=== PATIENT | male | born 1960 | race Two or more races ===

== ENCOUNTER 2019-04-19 02:32 | Emergency (ER) | payer MEDICAID ==
[~2019-04-19] VITALS: Ht 175.3 cm; Wt 86.2 kg
[2019-04-19] VITALS (7 sets, daily range): BP systolic 135–180; BP diastolic 68–100
[2019-04-19] MEDS ORDERED: MORPHINE SULFATE 4 MG/ML SYR/VIAL ONE (02:36)
[2019-04-19] MEDS ORDERED: ONDANSETRON HCL 4 MG/2 ML VIAL ONE (02:36)
[2019-04-19] MEDS ORDERED: DILTIAZEM HCL 25 MG/5 ML VIAL IV ONE ×4 (02:38→04:00)
[2019-04-19] MEDS ORDERED: SUCCINYLCHOLINE CHLORIDE 20 MG/ML 10ML VIAL IV ONE ×2 (02:57→03:15)
[2019-04-19] MEDS ORDERED: ETOMIDATE (2MG/ML) 20ML VIAL IV ONE ×2 (02:57→03:15)
[2019-04-19] MEDS ORDERED: PROPOFOL 100 ML IV ONE (02:59)
[2019-04-19] MEDS ORDERED: MIDAZOLAM DRIP 50 mg/50mL 50 ML IV ONE (03:06)
[2019-04-19] MEDS ORDERED: ONDANSETRON HCL 4 MG/2 ML VIAL IV ONE (03:15)
[2019-04-19] MEDS ORDERED: MORPHINE SULFATE 4 MG/ML SYR/VIAL IV ONE (03:15)
[2019-04-19] MEDS: MIDAZOLAM DRIP 50 mg/50mL 50 ML IV SCH ×3 (03:15→10:39)
[2019-04-19] MEDS ORDERED: PROPOFOL 100 ML IV SCH (03:23)
[2019-04-19] MEDS: PROPOFOL 100 ML IV SCH ×2 (03:30→04:06)
[2019-04-19] MEDS ORDERED: DILTIAZEM 125mg/125ml BAG KIT 125 ML IV ONE (04:15)
[2019-04-19 05:27] LABS: Basophils # (auto) 0.1 uL; Basophils % (auto) 0.6 % (0.0-2.0); Eosinophils # (auto) 0.2 uL; Eosinophils % (auto) 1.6 % (0.0-7.0); Hematocrit 51.7 % (41.0-53.0); Hemoglobin 17.5 g/dL (13.5-17.5); Lymphocytes # (auto) 3.2 uL; Mean Corpuscular Hemoglobin 35.6 pg (28.0-32.0); Mean Corpuscular Hgb Conc. 33.7 g/dL (32.0-36.0); Mean Corpuscular Volume 105.5 fL (80.0-100.0); Monocytes % (auto) 8.3 % (0.0-12.0); Neutrophils # (auto) 7.1 uL; Neutrophils % (auto) 61.5 % (37.0-80.0); Nucleated Red Blood Cells % 0.2 %; Platelet Count (auto) 154 10^3/uL (140-450); Red Cell Distribution Width 13.9 % (11.8-14.3); White Blood Cell 11.6 10^3/uL (4.4-10.8)
[2019-04-19 05:46] LABS: Albumin 3.7 g/dL (3.4-5.0); Calcium 8.8 mg/dL (8.5-10.1); Magnesium 2.2 mg/dL (1.6-2.6); Potassium 3.7 mmol/L (3.5-5.1)
[2019-04-19 05:53] LABS: BUN/Creatinine Ratio 9.7; Bilirubin, Total 0.4 mg/dL (0.2-1.0); Total Protein 8.4 g/dL (6.4-8.2)
[2019-04-19] MEDS ORDERED: DIGOXIN (250MCG/ML) 2 ML AMPULE IV ONE (06:00)
[2019-04-19] MEDS ORDERED: ENOXAPARIN SOD 100 MG/1 ML SYRINGE SC ONE (06:00)
[2019-04-19] MEDS ORDERED: IOHEXOL 350 MG/ML 100ML IJ ONE (06:10)
[2019-04-19] MEDS ORDERED: ONDANSETRON HCL 4 MG/2 ML VIAL IV PRN (07:15)
[2019-04-19] MEDS ORDERED: DEXTROSE (50%) 50ML SYRG IV PRN (07:15)
[2019-04-19] MEDS ORDERED: SODIUM CHLORIDE 0.9% 1,000 ML IV SCH (07:15)
[2019-04-19] MEDS ORDERED: ATORVASTATIN 20 MG TAB PO ONE (07:15)
[2019-04-19] MEDS ORDERED: SODIUM CHLORIDE 0.9% 500 ML IV ONE (07:15)
[2019-04-19] MEDS ORDERED: NITROGLYCERIN 0.4 MG SL TAB SL PRN (07:15)
[2019-04-19] MEDS ORDERED: ACETAMINOPHEN 325 MG TAB PO PRN (07:15)
[2019-04-19] MEDS ORDERED: MORPHINE SULF INJ 2 MG/ML SYRINGE 1ML IV PRN (07:15)
[2019-04-19 07:23] LABS: Urine WBC None Seen /hpf (0 - 3)
[2019-04-19 07:47] LABS: Urine Bacteria NONE SEEN /hpf (None Seen); Urine Blood Negative /uL (Negative); Urine Specific Gravity 1.007 (1.001-1.035)
[2019-04-19 08:10] LABS: Lactic Acid w/Reflex 3.7 mmol/L (0.4-2.0)
[2019-04-19] MEDS ORDERED: cefTRIAXone 1GM/50ML D5W 50 ML IV SCH (09:00)
[2019-04-19] MEDS ORDERED: fentaNYL Drip 2500mCg/250mlNS 250 ML IV SCH (09:00)
[2019-04-19] MEDS ORDERED: fentaNYL Drip 2500mCg/250mlNS 250 ML IV ONE (09:06)
[2019-04-19] MEDS ORDERED: ASPirin 81 mg TAB PO SCH (10:00)
[2019-04-19] MEDS ORDERED: ENOXAPARIN SOD 100 MG/1 ML SYRINGE SC SCH (10:00)
[2019-04-19] MEDS ORDERED: FAMOTIDINE (10MG/ML) 2ML VL IV SCH (10:00)
[2019-04-19] MEDS ORDERED: METOPROLOL TARTRATE 25 MG TAB NG SCH (10:00)
[2019-04-19] MEDS ORDERED: HEPARIN DRIP/D5W 100UNITS/ML 250 ML IV SCH (10:14)
[2019-04-19] MEDS ORDERED: HEPARIN SODIUM (PORCINE) 5000 UNITS/ML 1ML VIAL IV ONE (10:15)
[2019-04-19] MEDS ORDERED: HEPARIN SODIUM (PORCINE) 5000 UNITS/ML 1ML VIAL ONE (10:18)
[2019-04-19 10:27] LABS: Basophils # (auto) 0 uL; Basophils % (auto) 0.2 % (0.0-2.0); Eosinophils # (auto) 0 uL; Eosinophils % (auto) 0.1 % (0.0-7.0); Monocytes # (auto) 0.6 uL; Nucleated Red Blood Cells % 0.1 %; Platelet Count (auto) 125 10^3/uL (140-450)
[2019-04-19] MEDS ORDERED: HEPARIN DRIP/D5W 100UNITS/ML 250 ML IV ONE (10:27)
[2019-04-19 10:28] LABS: Hematocrit 45.7 % (41.0-53.0); Hemoglobin 15.4 g/dL (13.5-17.5); Lymphocytes # (auto) 1.1 uL; Lymphocytes % (auto) 11.8 % (10.0-50.0); Mean Corpuscular Hemoglobin 35.2 pg (28.0-32.0); Mean Corpuscular Hgb Conc. 33.8 g/dL (32.0-36.0); Mean Corpuscular Volume 104.1 fL (80.0-100.0); Monocytes % (auto) 5.9 % (0.0-12.0); Neutrophils # (auto) 7.7 uL; Red Blood Cells 4.39 10^6/uL (4.5-5.90); Red Cell Distribution Width 13.9 % (11.8-14.3); White Blood Cell 9.4 10^3/uL (4.4-10.8)
[2019-04-19] MEDS ORDERED: InsuLIN REG 1unit/0.01ml Soln (100units/ml) SC SCH ×2 (10:30→12:00)
[2019-04-19 10:37] LABS: INR 1.02 (0.9-1.15); Partial Thromboplastin Time 28.4 sec (23.64-32.05)
[2019-04-19 11:09] LABS: BUN/Creatinine Ratio 11.4; Calcium 8.1 mg/dL (8.5-10.1)
[2019-04-19 11:12] LABS: Potassium 6.3 mmol/L (3.5-5.1)
[2019-04-19] MEDS ORDERED: SODIUM BICARBONATE 8.4% INJ 50ML SYRINGE ONE (11:15)
[2019-04-19] MEDS ORDERED: FUROSEMIDE 40 MG/4 ML VIAL ONE (11:15)
[2019-04-19] MEDS ORDERED: CALCIUM CHLOR(10%) 100MG/ML 10ML SYRINGE IV ONE (11:15)
[2019-04-19] MEDS ORDERED: CALCIUM GLUC 4.65meq/50ml D5AE 50 ML IV ONE (11:30)
[2019-04-19] MEDS ORDERED: SODIUM BICARBONATE 8.4 % INJ 50ML VIAL IV ONE (11:30)
[2019-04-19] MEDS ORDERED: FUROSEMIDE 40 MG/4 ML VIAL IV ONE (11:30)
[2019-04-19] MEDS ORDERED: LABETALOL HCL 5 MG/ML ML 20ML VIAL IV ONE (11:38)
[2019-04-19] MEDS ORDERED: ACCU-CHEK COMFORT CURVE STRIP VI SCH (12:00)
[2019-04-19] MEDS ORDERED: metroNIDAZOLE 500MG/100ML 100 ML IV SCH (14:00)
[2019-04-19] MEDS ORDERED: ATORVASTATIN 20 MG TAB PO SCH (22:00)
--- NOTE | 2019-04-21 10:56 | NUR ---
Received no notification of Skip Miner consult order for transfer on 04/19/19.
== END 2019-04-19 14:09 | disposition home or self-care (01) ==
LOC: EDBD 02:32 → ER 02:39 → UNDOADMIN 02:40 → TELE 02:40 → ER 14:09
DX: M54.9 Dorsalgia, unspecified (principal); E11.9 Type 2 diabetes mellitus without complications; I48.91 Unspecified atrial fibrillation; R06.03 Acute respiratory distress; E78.5 Hyperlipidemia, unspecified; I10 Essential (primary) hypertension
CPT/HCPCS: 31500; 36415; 36600; 70450; 71045; 71250; 74176; 80048; 80053; 81001; 82010; 82805; 82962; 83605; 83735; 83880; 84484; 85025; 85379; 85610; 85730; 87070; 87077; 87186; 87205; 93005; 93970; 96365; 96366; 96368; 96372; 96375; 96376; 99285; J0330; J0696; J1160; J1644; J1650; J1815; J1940; J2250; J2270; J2405; J2704; J3490; J7030; Q9967; 94002